=== PATIENT | female | born 1985 | race Caucasian/White ===

== ENCOUNTER 2017-10-05 06:42 | Inpatient (IN) | payer OTHER ==
[~2017-10-05] VITALS: Ht 157.5 cm; Wt 83.1 kg
[2017-10-05] MEDS ORDERED: LACTATED RINGERS 1,000 ML IV SCH ×3 (08:30→11:09)
[2017-10-05] MEDS ORDERED: OXYTOCIN 30U/ 0.9% NaCL 500ML 500 ML IV SCH (08:47)
[2017-10-05 08:48] VITALS: BP 121/77
[2017-10-05] MEDS ORDERED: PLEASE ENTER HEIGHT AND WEIGHT MC SCH (08:51)
[2017-10-05] MEDS ORDERED: LACTATED RINGERS 1,000 ML IVBOLUS ONE (09:00)
[2017-10-05] MEDS ORDERED: METOCLOPRAMIDE 5 MG/ML, 2ML IV ONE (09:00)
[2017-10-05] MEDS ORDERED: SODIUM CITRATE/CITRIC ACID 30 ML UDC PO ONE (09:00)
[2017-10-05] MEDS ORDERED: SODIUM CITRATE/CITRIC ACID 30 ML UDC ONE (09:04)
[2017-10-05] MEDS ORDERED: NEWBORN KIT ONE (09:04)
[2017-10-05] MEDS ORDERED: OXYTOCIN 30U/ 0.9% NaCL 500ML 500 ML ONE (09:05)
[2017-10-05] MEDS ORDERED: METOCLOPRAMIDE 5 MG/ML, 2ML ONE (09:05)
[2017-10-05 09:16] LABS: BASOPHILS # (AUTO) 0.03 x10^3/uL (0-0.1); BASOPHILS % (AUTO) 0 % (0-1); EOSINOPHILS % (AUTO) 0 % (1-7); LYMPHOCYTES # (AUTO) 1.79 x10^3/uL (1-3.4); LYMPHOCYTES % (AUTO) 17 % (22-44); MD NO; MEAN CORPUSCULAR HEMOGLOBIN 31.8 pg (27.0-34.8); MEAN CORPUSCULAR HGB CONC 33.4 g/dL (32.4-35.8); MEAN CORPUSCULAR VOLUME 95.1 fL (80-100); MEAN PLATELET VOLUME 9.5 fL (7.4-10.4); MONOCYTES # (AUTO) 0.65 x10^3/uL (0.2-0.8); MONOCYTES % (AUTO) 6 % (2-9); NEUTROPHILS # (AUTO) 8.05 x10^3/uL (1.8-6.8); NEUTROPHILS % (AUTO) 77 % (42-75); PLATELET COUNT 195 x10^3/uL (130-400); RED BLOOD COUNT 3.98 x10^6/uL (3.82-5.3); RED CELL DISTRIBUTION WIDTH 13.4 % (9.6-15.2)
[2017-10-05] MEDS ORDERED: CEFAZOLIN 1,000 MG ONE (09:21)
[2017-10-05] MEDS ORDERED: EPINEPHRINE 1 MG/ML, 1ML ONE (09:21)
[2017-10-05] MEDS ORDERED: EPHEDRINE 50 MG/ML, 1ML ONE (09:21)
[2017-10-05] MEDS ORDERED: OXYTOCIN 10 UNITS/ML, 1ML ONE ×3 (09:21→10:40)
[2017-10-05] MEDS ORDERED: ACYC-114 PO (09:28)
[2017-10-05] MEDS ORDERED: ONDANSETRON 2MG/ML, 2ML IVPush PRN (10:00)
[2017-10-05] MEDS ORDERED: morphine SULFATE 10 MG/ML, 1ML IV PRN (10:00)
[2017-10-05] MEDS ORDERED: OXYcodone 5 MG/5 ML ORAL.SOL UDC PO PRN (10:00)
[2017-10-05] MEDS ORDERED: PROMETHAZINE 25 MG/ML, 1ML IV PRN (10:00)
[2017-10-05] MEDS ORDERED: MEPERIDINE/PF 25MG/0.5ML IVPush PRN (10:00)
[2017-10-05] MEDS ORDERED: FENTANYL PF 100 MCG/2ML IV PRN (10:00)
[2017-10-05] MEDS ORDERED: KETOROLAC 30 MG/1 ML ONE (10:37)
[2017-10-05] MEDS ORDERED: FENTANYL PF 100 MCG/2ML ONE (10:40)
[2017-10-05] MEDS ORDERED: OXYcodone/APAP 5/325MG TABLET ONE (11:24)
[2017-10-05] MEDS: OXYcodone/APAP 5/325MG TABLET PO PRN ×3 (11:27→20:52)
[2017-10-05] MEDS ORDERED: SIMETHICONE 80 MG CHEW TAB PO PRN (11:30)
[2017-10-05] MEDS ORDERED: METOCLOPRAMIDE 5 MG/ML, 2ML IV PRN (11:30)
[2017-10-05] MEDS ORDERED: MISOPROSTOL 200 MCG TABLET PR PRN (11:30)
[2017-10-05] MEDS ORDERED: DIPH,PERTUSS(ACELL),TET VAC/PF NC IM-VACC PRN (11:30)
[2017-10-05] MEDS ORDERED: morphine SULFATE 10 MG/ML, 1ML IVPush PRN ×2 (11:30)
[2017-10-05] MEDS ORDERED: ACETAMINOPHEN 325 MG TABLET PO PRN (11:30)
[2017-10-05] MEDS ORDERED: ONDANSETRON 2MG/ML, 2ML IV PRN (11:30)
[2017-10-05] MEDS ORDERED: CALCIUM CARBONATE 500 MG TAB.CHEW PO PRN (11:30)
[2017-10-05] MEDS ORDERED: DOCUSATE 100 MG CAPSULE PO PRN (11:30)
[2017-10-05 13:30] VITALS: BP 124/68
[2017-10-05] MEDS: LACTATED RINGERS 1,000 ML IV SCH ×2 (15:41→21:09)
[2017-10-05] MEDS: OXYTOCIN 30U/ 0.9% NaCL 500ML 500 ML IV SCH ×2 (15:42→21:09)
[2017-10-05 16:45] VITALS: BP 129/78
[2017-10-05] MEDS: KETOROLAC 30 MG/1 ML IV SCH ×2 (17:11→23:20)
[2017-10-05 18:16] LABS: MEAN CORPUSCULAR HEMOGLOBIN 32.9 pg (27.0-34.8); MEAN CORPUSCULAR HGB CONC 34.3 g/dL (32.4-35.8); MEAN CORPUSCULAR VOLUME 96.1 fL (80-100); MEAN PLATELET VOLUME 9.2 fL (7.4-10.4); PLATELET COUNT 159 x10^3/uL (130-400); RED BLOOD COUNT 3.43 x10^6/uL (3.82-5.3); RED CELL DISTRIBUTION WIDTH 13.3 % (9.6-15.2)
[2017-10-05 18:56] LABS: BASOPHILS # (AUTO) 0.05 x10^3/uL (0-0.1); BASOPHILS % (AUTO) 0 % (0-1); EOSINOPHILS % (AUTO) 0 % (1-7); LYMPHOCYTES # (AUTO) 1.57 x10^3/uL (1-3.4); LYMPHOCYTES % (AUTO) 11 % (22-44); MD SCAN; MONOCYTES # (AUTO) 0.81 x10^3/uL (0.2-0.8); MONOCYTES % (AUTO) 6 % (2-9); NEUTROPHILS # (AUTO) 11.73 x10^3/uL (1.8-6.8); NEUTROPHILS % (AUTO) 83 % (42-75)
[2017-10-05 20:20] VITALS: BP 122/71
[2017-10-05 23:45] VITALS: BP 123/73
[2017-10-06] MEDS: OXYcodone/APAP 5/325MG TABLET PO PRN ×5 (03:16→23:51)
[2017-10-06 03:20] VITALS: BP 123/75
[2017-10-06] MEDS: KETOROLAC 30 MG/1 ML IV SCH ×4 (05:19→23:07)
[2017-10-06] MEDS: OXYTOCIN 30U/ 0.9% NaCL 500ML 500 ML IV SCH ×2 (06:52→17:28)
[2017-10-06] MEDS: LACTATED RINGERS 1,000 ML IV SCH ×2 (06:52→17:27)
[2017-10-06 07:39] VITALS: BP 111/72
[2017-10-06] MEDS: PRENATAL VIT/IRON/FA 1 EACH TABLET PO SCH (07:57)
[2017-10-06 12:49] VITALS: BP 113/77
[2017-10-06 19:40] VITALS: BP 102/63
[2017-10-07] MEDS ORDERED: OXYC-302 PO (00:26)
[2017-10-07] MEDS ORDERED: IBUP-1222 PO (00:26)
[2017-10-07] MEDS: OXYTOCIN 30U/ 0.9% NaCL 500ML 500 ML IV SCH (03:09)
[2017-10-07] MEDS: LACTATED RINGERS 1,000 ML IV SCH (03:09)
[2017-10-07] MEDS: KETOROLAC 30 MG/1 ML IV SCH (05:03)
[2017-10-07] MEDS: PRENATAL VIT/IRON/FA 1 EACH TABLET PO SCH (08:03)
[2017-10-07 08:10] VITALS: BP 122/84
[2017-10-07] MEDS: OXYcodone/APAP 5/325MG TABLET PO PRN (09:43)
[2017-10-07] MEDS ORDERED: IBUPROFEN 600 MG TABLET PO PRN (11:30)
== END 2017-10-07 09:50 | disposition home or self-care (01) | DRG 766 ==
LOC: LDIP 08:31 → 2NW 13:15
PROVIDERS: ADMIT Obstetrics & Gynecology; ATTEND Obstetrics & Gynecology
PROC: 10D00Z1 Extraction of Products of Conception, Low, Open Approach (ICD-10-PCS; principal; 2017-10-05)
DX: O32.1XX0 Maternal care for breech presentation, not applicable or unspecified (principal); O12.04 Gestational edema, complicating childbirth; Z37.0 Single live birth; Z3A.39 39 weeks gestation of pregnancy
CPT/HCPCS: 36415; 85025; 86850; 86900; J0171; J0690; J1885; J3010; J2590; J2765; J7120

== ENCOUNTER → 2018-11-27 | Outpatient (CLI) | payer OTHER ==
[~2018-11-27] MED LIST: ACYC-114 PO; IBUP-1222 PO; MULT-516 PO; OXYC-302 PO
== END | disposition home or self-care (01) ==
LOC: STAR 09:50
PROVIDERS: ATTEND Obstetrics & Gynecology
DX: N90.69 Other specified hypertrophy of vulva (principal)
CPT/HCPCS: 36415; 84703

== ENCOUNTER 2018-12-01 12:58 | Day surgery (SDC) | payer OTHER ==
[~2018-12-01] VITALS: Ht 157.5 cm; Wt 68.2 kg
[2018-12-01] MEDS ORDERED: LACTATED RINGERS 1,000 ML IV SCH (13:18)
[2018-12-01 13:19] VITALS: BP 96/66
[2018-12-01] MEDS ORDERED: GABAPENTIN 300 MG CAPSULE PO ONE (13:30)
[2018-12-01] MEDS ORDERED: ACETAMINOPHEN 500 MG TABLET PO ONE (13:30)
[2018-12-01 13:52] LABS: HCG UR SG 1.015 (1.003-1.030)
[2018-12-01] MEDS ORDERED: BUPIVACAINE/PF 0.25% ONE (14:24)
[2018-12-01] MEDS ORDERED: ESTROGENS CONJUGATED VAG CRM 0.625MG/1G, 30GM ONE (14:24)
[2018-12-01] MEDS ORDERED: EPINEPHRINE 1 MG/ML, 1ML ONE (14:24)
[2018-12-01] MEDS ORDERED: MIDAZOLAM 1 MG/ML, 2ML ONE (14:47)
[2018-12-01] MEDS ORDERED: NEOSPORIN OINT, 15GM ONE (16:05)
[2018-12-01] MEDS ORDERED: PROPOFOL 10 MG/ML, 20ML ONE (16:06)
[2018-12-01] MEDS ORDERED: ONDANSETRON 2MG/ML, 2ML ONE (16:06)
[2018-12-01] MEDS ORDERED: DEXAMETHASONE 4 MG/ML, 1ML ONE (16:06)
[2018-12-01] MEDS ORDERED: FENTANYL PF 100 MCG/2ML ONE (16:06)
[2018-12-01] MEDS ORDERED: CEFAZOLIN 1,000 MG ONE ×2 (16:06)
[2018-12-01] MEDS ORDERED: MEPERIDINE/PF 50 MG/ML ONE (16:20)
[2018-12-01] MEDS ORDERED: OXYcodone 5 MG/5 ML ORAL.SOL UDC ONE (16:30)
[2018-12-01] MEDS ORDERED: DIAZEPAM 5 MG/ML, 2ML IVPush PRN (16:30)
[2018-12-01] MEDS ORDERED: hydrALAzine 20 MG/ML, 1ML IV PRN (16:30)
[2018-12-01] MEDS ORDERED: ACETAMINOPHEN 325 MG TABLET PO PRN (16:30)
[2018-12-01] MEDS ORDERED: ALBUTEROL SULFATE 2.5 MG/3 ML NPPB PRN (16:30)
[2018-12-01] MEDS ORDERED: MEPERIDINE/PF 25MG/0.5ML IVPush PRN (16:30)
[2018-12-01] MEDS ORDERED: FENTANYL PF 100 MCG/2ML IV PRN (16:30)
[2018-12-01] MEDS ORDERED: KETOROLAC 30 MG/1 ML IV PRN (16:30)
[2018-12-01] MEDS ORDERED: PROMETHAZINE 25 MG/ML, 1ML IV PRN (16:30)
[2018-12-01] MEDS ORDERED: HYDROmorphone 2 MG/ML, 1ML IVPush PRN (16:30)
[2018-12-01] MEDS ORDERED: LABETALOL 5MG/ML, 20ML IV PRN (16:30)
[2018-12-01] MEDS: OXYcodone 5 MG/5 ML ORAL.SOL UDC PO PRN ×2 (16:32→16:54)
== END 2018-12-01 18:00 | disposition home or self-care (01) ==
LOC: OUT 12:58
PROVIDERS: ATTEND Obstetrics & Gynecology
DX: N90.60 Unspecified hypertrophy of vulva (principal); F41.9 Anxiety disorder, unspecified; G47.00 Insomnia, unspecified; Z79.899 Other long term (current) drug therapy; Z87.891 Personal history of nicotine dependence; Z98.890 Other specified postprocedural states; Z80.1 Family history of malignant neoplasm of trachea, bronchus and lung; Z82.49 Family history of ischemic heart disease and other diseases of the circulatory system
CPT/HCPCS: 56620; 81025; 88305; J0171; J0690; J1100; J2175; J2250; J2405; J2704; J3010; J3490; J7120